=== PATIENT | male | born 1980 | race Caucasian/White ===

== ENCOUNTER 2017-12-27 15:28 | Emergency (ER) | payer SELFPAY ==
[~2017-12-27] VITALS: Ht 167.6 cm; Wt 71.0 kg
[~2017-12-27 15:28] MED LIST: DICL75 PO; PENI500T PO
[2017-12-27 15:32] VITALS: BP 161/89; PULSE 72; RESP 16; TEMP 98.1; O2SAT 100
[2017-12-27] MEDS ORDERED: SUBO8MIS SL (15:51)
--- NOTE | 2017-12-27 16:32 | PD ---
HPI Chief Complaint: Pain: Acute or Chronic Time Seen by Provider: 15:46 Travel History International Travel<30 days: No Contact w/Intl Traveler<30days: No Traveled to known affect area: No History of Present Illness HPI This is a 37-year-old male here with left leg pain times one week. Patient pain originated in his left low back which radiated down his buttocks into his leg. 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 He denies lower extremity swelling. Pain is worse with movement and relieved with rest. Severity is moderate. No prior history of DVT, CVA, hormone therapy, recent surgery. PFSH Past Medical History Medical History: Denies Significant Hx Hx Anticoagulant Therapy: No Anxiety: Yes Diabetes: No Diminished Hearing: No Hypertension: Yes Musculoskeletal: Yes (R.ROTAR CUFF) Psychiatric: Yes Integumentary: Yes ("MRSA" INFECTION RIGHT LEG) Immunizations Current: No Ulcer: Yes Tetanus Vaccination: > 5 Years Influenza Vaccination: No Past Surgical History Tonsillectomy: Yes Other Surgery: Yes (HEMS) Social History Alcohol Use: Yes (OCC) Tobacco Use: No (1/2 PPD) Substance Use: No (HISTORY OF) Allergies-Medications (Allergen,Severity, Reaction): Coded Allergies: Pertussis Vaccines (Unverified Allergy, Severe, "SWELLING IN THROAT AND HIVES", 12/27/17) acetaminophen (Unverified Adverse Reaction, Severe, NAUSEA, 12/27/17) codeine (Unverified Adverse Reaction, Severe, "nausea,itching", 12/27/17) oxycodone (Unverified Adverse Reaction, Severe, NAUSEA, 12/27/17) propoxyphene (Unverified Adverse Reaction, Severe, UPSET STOMACH, 12/27/17) Reported Meds & Prescriptions Reported Meds & Active Scripts Active Reported Suboxone Sublingual Film (Buprenorphine-Naloxone Sublingual Film) 8-2 Mg Film 1 Film SL DIRECTED Unique ID number required: Review of Systems Except as stated in HPI: all other systems reviewed are Neg Physical Exam Narrative GENERAL: Alert and well-appearing 37-year-old male SKIN: Warm and dry. HEAD: Normocephalic. EYES: No injection or drainage. NECK: Supple. CARDIOVASCULAR: Regular rate and rhythm RESPIRATORY: Breath sounds equal bilaterally. No accessory muscle use. GASTROINTESTINAL: Abdomen soft, non-tender, nondistended. MUSCULOSKELETAL: No cyanosis, or edema. Left lower extremity: Patient has tenderness to the left buttocks which extends down the lateral aspect of the leg into the left lateral calf. No palpable cord. Negative Homans sign. No pedal edema. 2+ distal pulses. Normal wrist sensation. Brisk cap refill. BACK: + Tenderness to the left sacroiliac joint Data Data Last Documented VS Vital Signs Date Time Temp Pulse Resp B/P (MAP) Pulse Ox O2 Delivery O2 Flow Rate FiO2 12/27/17 15:32 98.1 72 16 161/89 (113) 100 MDM Medical Decision Making Medical Screen Exam Complete: Yes Emergency Medical Condition: Yes Differential Diagnosis Lumbar strain, sciatica, unlikely DVT Narrative Course 37-year-old male here with left lower extremity pain 1 week. This appears to be musculoskeletal. Pain region in the low back radiating down the left buttocks into the calf. He reports the pain has now lingered into the left calf intermittently. He has no risk factors for DVT. I do not clinically suspect DVT. He'll be treated for sciatica and instructed to return if symptoms do not improve or worsen Diagnosis Primary Impression: Leg pain Qualified Codes: M79.605 - Pain in left leg Referrals: Primary Care Physician Additional Instructions: Ibuprofen 800 mg every 6 hours as needed for pain Medication as prescribed. Follow-up the primary doctor. Return if he developed new or worsening symptoms Scripts Cyclobenzaprine (Flexeril) 5 Mg Tab 5 MG PO TID for Muscle Spasm, #12 TAB 0 Refills Prov: Sanaz Samano 12/27/17 Disposition: 01 DISCHARGE HOME Condition: Stable Sanaz Samano Dec 27, 2017 16:32
[2017-12-27] MEDS ORDERED: CYCL5TAB PO (16:33)
== END 2017-12-27 16:41 | disposition home or self-care (01) ==
LOC: PHEFT 15:28
DX: M79.605 Pain in left leg (principal); F41.9 Anxiety disorder, unspecified; I10 Essential (primary) hypertension; F17.200 Nicotine dependence, unspecified, uncomplicated
CPT/HCPCS: 99283